=== PATIENT | female | born 1990 | race Two or more races ===

== ENCOUNTER 2024-03-21 11:38 | Emergency (ER) | payer OTHER ==
[~2024-03-21] VITALS: Ht 154.9 cm; Wt 63.5 kg
[2024-03-21 12:09] VITALS: O2SAT 99
[2024-03-21] MEDS ORDERED: SULF15DR26 LEFTEYE (16:11)
[2024-03-21] MEDS ORDERED: TOPUD MT (16:11)
[2024-03-21] MEDS ORDERED: DEXT30SU17 MT (16:16)
[2024-03-21] MEDS ORDERED: IBUP-1523 MT (16:16)
[2024-03-21 16:26] VITALS: BP 130/82; PULSE 90; RESP 16; TEMP 37.11408; O2SAT 99
== END 2024-03-21 16:55 | disposition home or self-care (01) ==
LOC: ER 11:38
DX: H00.016 Hordeolum externum left eye, unspecified eyelid (principal); Z98.890 Other specified postprocedural states
CPT/HCPCS: 99283